=== PATIENT | male | born 1950 | race Caucasian/White ===

== ENCOUNTER → 2017-11-02 | Outpatient (CLI) | payer OTHER ==
[~2017-11-02] MED LIST: GADOBENATE DIMEGLUMINE 1 ML IV ONE; LORAZEPAM INJ 2 MG/ML VIAL ONE
[2017-11-02 07:48] LABS: BLOOD UREA NITROGEN 35 mg/dL (7-26); BUN/CREATININE RATIO 32 (6-25); CREATININE, SERUM 1.08 mg/dL (0.72-1.25); EST GLOMERULAR FILTRATION RATE > 60 ML/MIN (60-)
--- NOTE | 2017-11-02 12:50 | Diagnostic Imaging Report ---
EXAMINATION: MRI of the brain with and without contrast HISTORY: Dizziness, vertigo for the last 7 months COMPARISON: None. TECHNIQUE: Pre-contrast: Sagittal T2; axial T1-IR, T2, MPGR, DWI, FLAIR; Post-contrast: axial and coronal T1. Additional high-resolution T2 FIESTA and T1 postcontrast in the posterior fossa. Intravenous contrast: 20 mL of MultiHance. IMAGE QUALITY: Magnetic susceptibility artifact in the right inferior frontal/facial region, likely related to prior trauma, with posttraumatic changes in the right orbital floor and maxillary region.. FINDINGS: CPA cistern/IACs/labyrinth: No mass or abnormal enhancement. Parenchyma: 1. No abnormal signal intensity or enhancement. 2. No mass or hemorrhage. No acute or chronic vascular insult. Skull: No abnormal signal intensity or enhancement. Major arteries: Expected flow voids present. Dural sinuses: Expected flow voids present. Ventricles: No hydrocephalus or displacement. Subarachnoid spaces: No abnormal signal intensity or enhancement. Brain volume: Normal for age. Foramen magnum: No mass, Chiari malformation, or basilar invagination. Sella: No gross mass. Paranasal/mastoid sinuses: Unremarkable. IMPRESSION: No intracranial abnormalities. Signed by: Dr. Chelsea Oneal M.D. on 11/02/2017 12:47 PM
== END ==
LOC: MRI 06:36
PROVIDERS: ATTEND Psychiatry & Neurology Neurology
DX: H81.399 Other peripheral vertigo, unspecified ear (principal); R20.8 Other disturbances of skin sensation
CPT/HCPCS: 36415; 70553; 82565; 84520; J2060

== ENCOUNTER 2024-07-17 14:23 | Emergency (ER) | payer OTHER ==
[~2024-07-17] VITALS: Ht 172.7 cm; Wt 92.5 kg
[2024-07-17 14:31] VITALS: TEMP 98.4
[2024-07-17 15:31] LABS: BASOPHILS % 0.4 % (0.0-1.0); EOSINOPHILS # (AUTO) 0.4 (0.0-0.4); HEMATOCRIT 29.2 % (38.2-49.6); HEMOGLOBIN 9.6 g/dL (14.0-18.0); LYMPHOCYTES % 11.7 % (18.0-39.1); MEAN CORPUSCULAR HEMOGLOBIN 29.4 pg (28-32); MEAN CORPUSCULAR HGB CONC 32.9 g/dL (31-35); MEAN CORPUSCULAR VOLUME 89.6 fL (81-99); MONOCYTES # (AUTO) 0.8 (0.2-0.8); MONOCYTES % 9.5 % (4.4-11.3); NEUTROPHILS % 72.4 % (38.7-80.0); PLATELET COUNT 309 x10e3/uL (140-360); RED BLOOD COUNT 3.26 x10e6/uL (4.3-5.7); RED CELL DISTRIBUTION WIDTH 14.4 % (11.7-14.4); WHITE BLOOD COUNT 8.21 x10e3/uL (4.8-10.8)
[2024-07-17] MEDS: ONDANSETRON HCL INJ 2MG/ML 2ML 2 MG/ML VIAL IV STA (15:46)
[2024-07-17] MEDS: SODIUM CHLORIDE 0.9% 1000ML 1,000 ML IV STA (15:47)
[2024-07-17 15:57] LABS: ALBUMIN 3.7 g/dL (3.5-5.0); ALBUMIN/GLOBULIN RATIO 1.3 (0.8-2.0); ANION GAP 16.7 mmol/L (8-16); BILIRUBIN,TOTAL 1.1 mg/dL (0.2-1.2); CALCIUM 8.8 mg/dL (8.4-10.2); CREATININE, SERUM 1.49 mg/dL (0.72-1.25); INR 0.93; MAGNESIUM 1.9 MG/DL (1.3-2.1); POTASSIUM 3.7 mmol/L (3.5-5.1); TOTAL PROTEIN 6.5 g/dL (6.5-8.1)
[2024-07-17 15:58] LABS: PARTIAL THROMBOPLASTIN TIME 30.3 seconds (23.8-35.5)
[2024-07-17 16:03] LABS: TROPONIN I 0.016 ng/mL (0-0.300)
[2024-07-17] MEDS ORDERED: IOPAMIDOL 370 MG/ML 100 ML INFUS..BTL INJ ONE (16:25)
[2024-07-17 18:54] VITALS: PULSE 78; RESP 16; O2SAT 100
== END 2024-07-17 18:51 | disposition home or self-care (01) ==
LOC: ER 14:48
DX: M25.462 Effusion, left knee (principal); Z96.652 Presence of left artificial knee joint; N28.9 Disorder of kidney and ureter, unspecified; I10 Essential (primary) hypertension; E78.5 Hyperlipidemia, unspecified; K44.9 Diaphragmatic hernia without obstruction or gangrene
CPT/HCPCS: 36415; 71260; 80053; 83735; 83880; 84484; 85025; 85379; 85610; 85730; 93005; 93971; 99284; J7030; Q9967; J2405